=== PATIENT | female | born 1985 | race Caucasian/White ===

== ENCOUNTER 2024-08-06 00:56 | Emergency (ER) | payer SELFPAY ==
[2024-08-06] MEDS ORDERED: Amoxicillin/Clavulanate K 875-125 MG Tab PO ONE (00:57)
== END 2024-08-06 01:17 | disposition home or self-care (01) ==
LOC: FB.ED 00:56
DX: S61.254A Open bite of right ring finger without damage to nail, initial encounter (principal); Z79.899 Other long term (current) drug therapy; Y04.1XXA Assault by human bite, initial encounter
CPT/HCPCS: 99283; A9270